=== PATIENT | male | born 1970 | race Caucasian/White ===

== ENCOUNTER 2021-08-11 07:00 | Emergency (ER) | payer BC ==
[~2021-08-11] VITALS: Ht 172.7 cm; Wt 74.8 kg
[~2021-08-11 07:00] MED LIST: CHLO25CA10 PO; GABA-532 PO; TRAM50TA2 PO
[2021-08-11 07:22] VITALS: BP 153/100
[2021-08-11 08:50] LABS: BASOPHILS % (AUTO) 0.2 % (0-1); EOSINOPHILS % (AUTO) 0.1 % (0-6); HEMATOCRIT 46.2 % (42.0-52.0); HEMOGLOBIN 15.5 g/dl (14.0-17.9); LYMPHOCYTES # (AUTO) 1.2 X10'3 (1.1-4.8); LYMPHOCYTES % (AUTO) 10.2 % (21-51); MEAN CORPUSCULAR HEMOGLOBIN 28.7 PG (27.0-31.0); MEAN CORPUSCULAR HGB CONC 33.6 g/dL (33.0-36.5); MEAN CORPUSCULAR VOLUME 85.5 FL (78-98); MEAN PLATELET VOLUME 6.5 FL (7.4-10.4); MONOCYTES # (AUTO) 0.8 X10'3 (0-0.9); MONOCYTES % (AUTO) 6.7 % (2-12); NEUTROPHILS # (AUTO) 9.9 X10'3 (1.8-7.7); NEUTROPHILS % (AUTO) 82.8 % (42-75); PLATELET COUNT 355 X10'3 (140-440); RED BLOOD COUNT 5.41 X10'6 (4.70-6.10); RED CELL DISTRIBUTION WIDTH 17.1 % (11.5-14.5)
[2021-08-11 09:03] LABS: ALANINE AMINOTRANSFERASE 15 U/L (12-78); ALBUMIN 4.2 G/DL (3.4-5.0); ALBUMIN/GLOBULIN RATIO 1.1 (1.1-1.5); ALKALINE PHOSPHATASE 85 IU/L (46-116); ANION GAP 15 (8-16); ASPARTATE AMINO TRANSFERASE 19 U/L (10-37); BILIRUBIN,TOTAL 1.1 MG/DL (0.1-1.0); BLOOD UREA NITROGEN 15 MG/DL (7-18); BUN/CREATININE RATIO 12.6 (5.4-32.0); CALCIUM 8.5 MG/DL (8.5-10.1); CHLORIDE 100 MMOL/L (99-107); CREATININE 1.19 MG/DL (0.60-1.10); GLUCOSE 112 MG/DL (70-104); LIPASE 66 U/L (73-393); POTASSIUM 3.9 MMOL/L (3.5-5.1); SODIUM 141 MMOL/L (135-145); TOTAL CARBON DIOXIDE 26.2 MMOL/L (24-32); TOTAL PROTEIN 8.1 G/DL (6.4-8.2); eGFR 64 ML/MIN
[2021-08-11] MEDS ORDERED: morphine 10mg/ml inj. IV ONE (09:05)
[2021-08-11] MEDS ORDERED: chlordiazePOXIDE 25mg capsule PO ONE (09:15)
[2021-08-11 09:22] LABS: ETHANOL 0.135 GM/DL (0.0-0.010)
[2021-08-11] MEDS ORDERED: CHLO25CA10 PO (10:03)
== END 2021-08-11 10:27 | disposition home or self-care (01) ==
LOC: ER 07:01
DX: F10.230 Alcohol dependence with withdrawal, uncomplicated (principal); I10 Essential (primary) hypertension; Z88.5 Allergy status to narcotic agent; Z88.8 Allergy status to other drugs, medicaments and biological substances; Z79.899 Other long term (current) drug therapy; Y90.9 Presence of alcohol in blood, level not specified
CPT/HCPCS: 36415; 80053; 80320; 83690; 85025; 99283

== ENCOUNTER 2023-04-12 13:03 | Emergency (ER) | payer BC ==
[~2023-04-12] VITALS: Ht 172.7 cm; Wt 68.2 kg
[2023-04-12 13:17] VITALS: BP 112/74; PULSE 106; RESP 18; TEMP 97.8; O2SAT 98
== END 2023-04-12 15:15 | disposition left against medical advice (07) ==
LOC: ER 13:03
DX: F10.129 Alcohol abuse with intoxication, unspecified (principal); Z53.21 Procedure and treatment not carried out due to patient leaving prior to being seen by health care provider; Y90.9 Presence of alcohol in blood, level not specified
CPT/HCPCS: 99281

== ENCOUNTER 2024-02-11 14:11 | Inpatient (IN) | payer BC ==
[~2024-02-11] VITALS: Ht 167.6 cm; Wt 72.7 kg
[2024-02-11] MEDS: ondansetron/PF 4mg/2ml inj IV ONE (15:33)
[2024-02-11] MEDS: thiamine 100mg/ml 2ml inj. IV ONE (15:36)
[2024-02-11 15:37] LABS: BASOPHILS % (AUTO) 0.4 % (0-1); EOSINOPHILS % (AUTO) 0.7 % (0-6); HEMATOCRIT 37.4 % (42.0-52.0); HEMOGLOBIN 12.2 g/dl (14.0-17.9); LYMPHOCYTES # (AUTO) 1.1 X10'3 (1.1-4.8); LYMPHOCYTES % (AUTO) 20.8 % (21-51); MEAN CORPUSCULAR HEMOGLOBIN 25.3 PG (27.0-31.0); MEAN CORPUSCULAR HGB CONC 32.7 g/dL (33.0-36.5); MEAN CORPUSCULAR VOLUME 77.5 FL (78-98); MEAN PLATELET VOLUME 5.7 FL (7.4-10.4); MONOCYTES # (AUTO) 0.5 X10'3 (0-0.9); MONOCYTES % (AUTO) 9.8 % (2-12); NEUTROPHILS # (AUTO) 3.8 X10'3 (1.8-7.7); NEUTROPHILS % (AUTO) 68.3 % (42-75); PLATELET COUNT 365 X10'3 (140-440); RED BLOOD COUNT 4.82 X10'6 (4.70-6.10); RED CELL DISTRIBUTION WIDTH 18.6 % (11.5-14.5); WHITE BLOOD COUNT 5.5 X10'3 (4.5-11.0)
[2024-02-11] MEDS: normal saline 1000ml 1,000 ML IV ONE (15:38)
[2024-02-11] MEDS: phenoBARBITAL sod 130mg/ml inj. IV ONE (15:38)
[2024-02-11 15:55] LABS: ALANINE AMINOTRANSFERASE 155 U/L (12-78); ALBUMIN 3.7 G/DL (3.4-5.0); ALBUMIN/GLOBULIN RATIO 0.8 (1.1-1.5); ALKALINE PHOSPHATASE 129 IU/L (46-116); ANION GAP 15 (8-16); ASPARTATE AMINO TRANSFERASE 317 U/L (10-37); BILIRUBIN,TOTAL 0.4 MG/DL (0.1-1.0); BLOOD UREA NITROGEN 10 MG/DL (7-18); BUN/CREATININE RATIO 8.1 (10.0-20.0); CALCIUM 8.2 MG/DL (8.5-10.1); CHLORIDE 98 MMOL/L (99-107); CREATININE 1.23 MG/DL (0.60-1.10); POTASSIUM 3.6 MMOL/L (3.5-5.1); SODIUM 138 MMOL/L (135-145); TOTAL CARBON DIOXIDE 24.9 MMOL/L (24-32); TOTAL PROTEIN 8.2 G/DL (6.4-8.2); eCRCL 62 ML/MIN; eGFR 61 ML/MIN
[2024-02-11 15:58] LABS: BILIRUBIN,URINE NEGATIVE (Neg); CLARITY,URINE CLEAR (Clear); COLOR,URINE YELLOW (Yellow); GLUCOSE, URINE NEGATIVE (Neg); KETONES,URINE NEGATIVE (Neg); LEUKOCYTE ESTERASE ,URINE NEGATIVE (Neg); NITRITES, URINE NEGATIVE (Neg); OCCULT BLOOD,URINE TRACE-INTACT (Neg); PROTEIN,URINE NEGATIVE (Neg); UROBILINOGEN,URINE 0.2 E.U/dL (0.2-1.0)
[2024-02-11 16:01] LABS: GLUCOSE 174 MG/DL (70-104)
[2024-02-11 16:07] LABS: UA COLLECTION TYPE URINAL
[2024-02-11 16:08] LABS: BACTERIA,URINE NONE SEEN /HPF (Neg); MUCUS STRANDS FEW /LPF (Neg); RBC,URINE NONE SEEN /HPF (0-2); SQUAMOUS EPITHELIAL CELL,UR NONE SEEN /LPF (FEW); WBC,URINE NONE SEEN /HPF (0-4)
[2024-02-11 16:17] LABS: URINE AMPHETAMINE SCREEN NEGATIVE (Neg); URINE BARBITUATE SCREEN POSITIVE (Neg); URINE BENZODIAZEPINES SCREEN NEGATIVE (Neg); URINE CANNABINOID SCREEN NEGATIVE (Neg); URINE COCAINE SCREEN NEGATIVE (Neg); URINE METHADONE SCREEN NEGATIVE (Neg); URINE OPIATE SCREEN NEGATIVE (Neg); URINE PHENCYCLIDINE SCREEN NEGATIVE (Neg)
[2024-02-11] MEDS ORDERED: potassium Cl 20 mEq SR tablet PO PRN ×2 (17:10)
[2024-02-11] MEDS ORDERED: HYDROcodone/acetaminophen 5mg/325mg tablet PO PRN (17:10)
[2024-02-11] MEDS ORDERED: potassium Cl 40MEQ/1/2NS 520ml 520 ML IV PRN (17:10)
[2024-02-11] MEDS ORDERED: mag hydrox/Alum hydrox/simeth 30ml oral suspension PO PRN ×2 (17:10→17:35)
[2024-02-11] MEDS ORDERED: magnesium hydroxide 30ml (MOM) UD suspension PO PRN (17:10)
[2024-02-11] MEDS ORDERED: magnesium Cl slow-release 64mg tablet PO PRN (17:10)
[2024-02-11] MEDS ORDERED: ondansetron/PF 4mg/2ml inj IV PRN (17:10)
[2024-02-11] MEDS ORDERED: acetaminophen 325mg tablet PO PRN (17:10)
[2024-02-11] MEDS ORDERED: morphine 2 MG/ML inj. syringe IV PRN (17:10)
[2024-02-11 17:25] LABS: ACETAMINOPHEN < 2.0 UG/ML (10-30)
[2024-02-11 17:27] LABS: ETHANOL 492 MG/DL (<10)
[2024-02-11] MEDS ORDERED: dicyclomine 10 MG capsule PO PRN (17:35)
[2024-02-11] MEDS ORDERED: cyclobenzaprine 10mg tablet PO PRN (17:35)
[2024-02-11] MEDS ORDERED: haloperidol lactate 5mg/ml inj IM PRN (17:35)
[2024-02-11 17:46] LABS: MAGNESIUM 2.1 MG/DL (1.5-2.4)
[2024-02-11] MEDS: LORazepam 2 mg/ml vial IV PRN ×2 (17:54→18:37)
[2024-02-11] MEDS: normal saline 1000ml 1,000 ML IV SCH (17:55)
[2024-02-11 18:42] LABS: APTT 25 SECONDS (22-32); INR 0.9 INR; PROTHROMBIN TIME 9.8 SECONDS (9.0-12.0)
[2024-02-11] MEDS: folic acid 1mg/0.2ml inj IV SCH (19:14)
[2024-02-11] MEDS: docusate sod 100mg capsule PO SCH (19:32)
[2024-02-11] MEDS: heparin, porcine 5000 units/ml vial SQ SCH (19:38)
[2024-02-11] MEDS: thiamine 100mg/ml 2ml inj. IV SCH (20:19)
[2024-02-12] VITALS (8 sets, daily range): BP systolic 131–156; BP diastolic 70–102; PULSE 63–114; RESP 12–20; TEMP 97.5–98.5; O2SAT 95–99
[2024-02-12 03:14] LABS: ALANINE AMINOTRANSFERASE 159 U/L (12-78); ALBUMIN 3.3 G/DL (3.4-5.0); ALBUMIN/GLOBULIN RATIO 0.8 (1.1-1.5); ALKALINE PHOSPHATASE 135 IU/L (46-116); ANION GAP 14 (8-16); ASPARTATE AMINO TRANSFERASE 308 U/L (10-37); BILIRUBIN,TOTAL 0.4 MG/DL (0.1-1.0); BLOOD UREA NITROGEN 9 MG/DL (7-18); CALCIUM 8.2 MG/DL (8.5-10.1); CHLORIDE 107 MMOL/L (99-107); GLUCOSE 85 MG/DL (70-104); PHOSPHORUS 3.5 MG/DL (2.3-4.5); SODIUM 146 MMOL/L (135-145); TOTAL CARBON DIOXIDE 25.2 MMOL/L (24-32); TOTAL PROTEIN 7.5 G/DL (6.4-8.2); eCRCL 85 ML/MIN; eGFR 88 ML/MIN
[2024-02-12] MEDS ORDERED: OMEP40CA21 PO (05:52)
[2024-02-12 07:52] LABS: BASOPHILS % (AUTO) 0.6 % (0-1); EOSINOPHILS # (AUTO) 0.1 X10'3 (0-0.9); EOSINOPHILS % (AUTO) 1.6 % (0-6); HEMATOCRIT 37.9 % (42.0-52.0); HEMOGLOBIN 12.1 g/dl (14.0-17.9); LYMPHOCYTES # (AUTO) 0.8 X10'3 (1.1-4.8); LYMPHOCYTES % (AUTO) 17.2 % (21-51); MEAN CORPUSCULAR HEMOGLOBIN 25.2 PG (27.0-31.0); MEAN CORPUSCULAR HGB CONC 31.9 g/dL (33.0-36.5); MEAN CORPUSCULAR VOLUME 79.1 FL (78-98); MEAN PLATELET VOLUME 6.2 FL (7.4-10.4); MONOCYTES # (AUTO) 0.4 X10'3 (0-0.9); MONOCYTES % (AUTO) 8.8 % (2-12); NEUTROPHILS # (AUTO) 3.5 X10'3 (1.8-7.7); NEUTROPHILS % (AUTO) 71.8 % (42-75); PLATELET COUNT 314 X10'3 (140-440); RED BLOOD COUNT 4.79 X10'6 (4.70-6.10); RED CELL DISTRIBUTION WIDTH 18.9 % (11.5-14.5); WHITE BLOOD COUNT 4.9 X10'3 (4.5-11.0)
[2024-02-12] MEDS: multivitamins, therapeutics tablet PO SCH (08:56)
[2024-02-12] MEDS: atenolol 50mg tablet PO SCH (08:57)
[2024-02-12] MEDS ORDERED: MIRT-87 PO (22:07)
[2024-02-12] MEDS ORDERED: QUET200T31 PO (22:07)
[2024-02-12] MEDS ORDERED: ROSU10TA72 PO (22:07)
[2024-02-13] VITALS (9 sets, daily range): BP systolic 107–138; BP diastolic 62–79; PULSE 78–86; RESP 13–21; TEMP 97.5–98.8; O2SAT 94–98
[2024-02-13 07:13] LABS: BASOPHILS % (AUTO) 0.5 % (0-1); EOSINOPHILS # (AUTO) 0.2 X10'3 (0-0.9); EOSINOPHILS % (AUTO) 2.3 % (0-6); HEMATOCRIT 33.7 % (42.0-52.0); HEMOGLOBIN 10.9 g/dl (14.0-17.9); LYMPHOCYTES # (AUTO) 1.1 X10'3 (1.1-4.8); MEAN CORPUSCULAR HEMOGLOBIN 25.4 PG (27.0-31.0); MEAN CORPUSCULAR HGB CONC 32.4 g/dL (33.0-36.5); MEAN CORPUSCULAR VOLUME 78.4 FL (78-98); MEAN PLATELET VOLUME 6.7 FL (7.4-10.4); MONOCYTES # (AUTO) 0.5 X10'3 (0-0.9); MONOCYTES % (AUTO) 7.1 % (2-12); NEUTROPHILS # (AUTO) 5.8 X10'3 (1.8-7.7); NEUTROPHILS % (AUTO) 76.1 % (42-75); PLATELET COUNT 303 X10'3 (140-440); RED CELL DISTRIBUTION WIDTH 19.3 % (11.5-14.5); WHITE BLOOD COUNT 7.6 X10'3 (4.5-11.0)
[2024-02-13 07:20] LABS: ALANINE AMINOTRANSFERASE 95 U/L (12-78); ALBUMIN 2.9 G/DL (3.4-5.0); ALBUMIN/GLOBULIN RATIO 0.7 (1.1-1.5); ALKALINE PHOSPHATASE 125 IU/L (46-116); ANION GAP 12 (8-16); ASPARTATE AMINO TRANSFERASE 112 U/L (10-37); BILIRUBIN,TOTAL 0.7 MG/DL (0.1-1.0); BLOOD UREA NITROGEN 9 MG/DL (7-18); BUN/CREATININE RATIO 11.4 (10.0-20.0); CHLORIDE 99 MMOL/L (99-107); CREATININE 0.79 MG/DL (0.60-1.10); GLUCOSE 101 MG/DL (70-104); MAGNESIUM 1.3 MG/DL (1.5-2.4); PHOSPHORUS 2.3 MG/DL (2.3-4.5); POTASSIUM 3.6 MMOL/L (3.5-5.1); SODIUM 135 MMOL/L (135-145); TOTAL CARBON DIOXIDE 23.6 MMOL/L (24-32); TOTAL PROTEIN 6.8 G/DL (6.4-8.2); eCRCL 96 ML/MIN; eGFR > 90 ML/MIN
[2024-02-13] MEDS: pantoprazole 40 MG vial IV SCH (07:33)
[2024-02-13] MEDS: magnesium sulf-water 2g/50mL 50 ML IV PRN (07:55)
[2024-02-13] MEDS: magnesium sulf-water 4G/100mL 100 ML IV ONE (11:42)
[2024-02-13 14:16] LABS: OCCULT BLOOD STOOL POSITIVE (Neg)
[2024-02-13] MEDS: mirtazapine 15mg tablet PO SCH (20:01)
[2024-02-13] MEDS: LORazepam 2 mg/ml vial IV PRN (20:04)
[2024-02-13] MEDS ORDERED: quetiapine 100mg tablet PO SCH (21:00)
[2024-02-14] MEDS: acetaminophen 325mg tablet PO PRN (00:59)
[2024-02-14 06:00] VITALS: BP 108/64; PULSE 78; RESP 18; TEMP 97.6; O2SAT 99
[2024-02-14 06:53] LABS: BASOPHILS # (AUTO) 0.1 X10'3 (0-0.2); BASOPHILS % (AUTO) 0.8 % (0-1); EOSINOPHILS # (AUTO) 0.2 X10'3 (0-0.9); EOSINOPHILS % (AUTO) 2.4 % (0-6); HEMATOCRIT 31.6 % (42.0-52.0); HEMOGLOBIN 10.2 g/dl (14.0-17.9); LYMPHOCYTES # (AUTO) 1.1 X10'3 (1.1-4.8); LYMPHOCYTES % (AUTO) 16.3 % (21-51); MEAN CORPUSCULAR HEMOGLOBIN 25.7 PG (27.0-31.0); MEAN CORPUSCULAR HGB CONC 32.3 g/dL (33.0-36.5); MEAN CORPUSCULAR VOLUME 79.4 FL (78-98); MEAN PLATELET VOLUME 6.6 FL (7.4-10.4); MONOCYTES # (AUTO) 0.4 X10'3 (0-0.9); MONOCYTES % (AUTO) 5.8 % (2-12); NEUTROPHILS # (AUTO) 5.3 X10'3 (1.8-7.7); NEUTROPHILS % (AUTO) 74.7 % (42-75); PLATELET COUNT 221 X10'3 (140-440); RED BLOOD COUNT 3.98 X10'6 (4.70-6.10); RED CELL DISTRIBUTION WIDTH 19.3 % (11.5-14.5)
[2024-02-14 07:31] LABS: ALANINE AMINOTRANSFERASE 63 U/L (12-78); ALBUMIN 2.7 G/DL (3.4-5.0); ALBUMIN/GLOBULIN RATIO 0.7 (1.1-1.5); ALKALINE PHOSPHATASE 109 IU/L (46-116); ANION GAP 11 (8-16); ASPARTATE AMINO TRANSFERASE 52 U/L (10-37); BILIRUBIN,TOTAL 0.5 MG/DL (0.1-1.0); BLOOD UREA NITROGEN 12 MG/DL (7-18); BUN/CREATININE RATIO 14.6 (10.0-20.0); CALCIUM 8.1 MG/DL (8.5-10.1); CHLORIDE 103 MMOL/L (99-107); CREATININE 0.82 MG/DL (0.60-1.10); GLUCOSE 93 MG/DL (70-104); POTASSIUM 3.5 MMOL/L (3.5-5.1); SODIUM 136 MMOL/L (135-145); TOTAL CARBON DIOXIDE 21.9 MMOL/L (24-32); TOTAL PROTEIN 6.5 G/DL (6.4-8.2); eCRCL 93 ML/MIN; eGFR > 90 ML/MIN
[2024-02-14 07:36] LABS: PHOSPHORUS 2.2 MG/DL (2.3-4.5)
[2024-02-14 08:00] VITALS: RESP 18; O2SAT 99
[2024-02-14] MEDS ORDERED: THIA100T70 PO (08:44)
[2024-02-14] MEDS ORDERED: FOLI0.4T6 PO (08:44)
[2024-02-14 11:00] VITALS: BP 111/43; PULSE 64; RESP 17; TEMP 97.8; O2SAT 97
[2024-02-14] MEDS ORDERED: PANT-47 PO (11:15)
[2024-02-14] MEDS ORDERED: LORA-269 PO (12:15)
== END 2024-02-14 14:20 | disposition home or self-care (01) | DRG 100 ==
LOC: ER 14:12 → ED HOLD 17:15 → PCU 3S 02-12 06:35
PROVIDERS: ADMIT Internal Medicine; ATTEND Internal Medicine
PROC: 05HA33Z Insertion of Infusion Device into Left Brachial Vein, Percutaneous Approach (ICD-10-PCS; principal; 2024-02-12)
PROC: B54NZZA Ultrasonography of Left Upper Extremity Veins, Guidance (ICD-10-PCS; 2024-02-12)
DX: R56.9 Unspecified convulsions (principal); N17.0 Acute kidney failure with tubular necrosis; F10.139 Alcohol abuse with withdrawal, unspecified; R74.01 Elevation of levels of liver transaminase levels; D50.9 Iron deficiency anemia, unspecified; I10 Essential (primary) hypertension; Y90.8 Blood alcohol level of 240 mg/100 ml or more; Z88.8 Allergy status to other drugs, medicaments and biological substances
CPT/HCPCS: 36410; 36415; 71045; 76937; 80053; 80305; 80320; 80329; 81001; 82272; 83735; 84100; 84484; 85025; 85610; 85730; 87081; 93005; 96374; 96375; 97161; 97530; 99285; A4615; A6213; C1751; G0378; J1644; J2060; J2405; J2470; J2560; J3411; J3475; J3490; J7030

== ENCOUNTER 2024-02-23 12:26 | Emergency (ER) | payer BC ==
[~2024-02-23] VITALS: Ht 167.6 cm; Wt 68.9 kg
[~2024-02-23 12:26] MED LIST changes: -CHLO25CA10 PO; +FOLI0.4T6 PO; +LORA-269 PO; +MIRT-87 PO; +PANT-47 PO; +QUET200T31 PO; +ROSU10TA72 PO; +THIA100T70 PO; -TRAM50TA2 PO
[2024-02-23] MEDS: magnesium sulf-water 2g/50mL 50 ML IV ONE (13:43)
[2024-02-23] MEDS: haloperidol lactate 5mg/ml inj IM ONE (13:43)
[2024-02-23] MEDS: LORazepam 2 mg/ml vial IV ONE ×2 (13:43→22:22)
[2024-02-23] MEDS: normal saline 1000ml 1,000 ML IV ONE (13:44)
[2024-02-23] MEDS: normal saline 1000ML IV soln IVB ONE (13:44)
[2024-02-23 14:21] LABS: BASOPHILS # (AUTO) 0.1 X10'3 (0-0.2); HEMOGLOBIN 11.5 g/dl (14.0-17.9); LYMPHOCYTES # (AUTO) 0.9 X10'3 (1.1-4.8); MEAN CORPUSCULAR HGB CONC 32.7 g/dL (33.0-36.5); MEAN CORPUSCULAR VOLUME 78.5 FL (78-98); MEAN PLATELET VOLUME 5.4 FL (7.4-10.4); MONOCYTES # (AUTO) 0.4 X10'3 (0-0.9); WHITE BLOOD COUNT 4.2 X10'3 (4.5-11.0)
[2024-02-23 14:25] LABS: EOSINOPHILS % (AUTO) 0.2 % (0-6); HEMATOCRIT 35.1 % (42.0-52.0); LYMPHOCYTES % (AUTO) 20.8 % (21-51); MEAN CORPUSCULAR HEMOGLOBIN 25.6 PG (27.0-31.0); MONOCYTES % (AUTO) 9.8 % (2-12); NEUTROPHILS # (AUTO) 2.8 X10'3 (1.8-7.7); NEUTROPHILS % (AUTO) 67.2 % (42-75); PLATELET COUNT 634 X10'3 (140-440); RED BLOOD COUNT 4.47 X10'6 (4.70-6.10); RED CELL DISTRIBUTION WIDTH 20.8 % (11.5-14.5)
[2024-02-23 14:28] LABS: APTT 25 SECONDS (22-32)
[2024-02-23 14:32] LABS: ALBUMIN 3.6 G/DL (3.4-5.0); ANION GAP 15 (8-16); BLOOD UREA NITROGEN 9 MG/DL (7-18); BUN/CREATININE RATIO 9.4 (10.0-20.0); CALCIUM 8.4 MG/DL (8.5-10.1); CHLORIDE 103 MMOL/L (99-107); CREATININE 0.96 MG/DL (0.60-1.10); GLUCOSE 86 MG/DL (70-104); LIPASE 28 U/L (16-77); POTASSIUM 4.2 MMOL/L (3.5-5.1); SODIUM 143 MMOL/L (135-145); TOTAL CARBON DIOXIDE 25.4 MMOL/L (24-32); eCRCL 79 ML/MIN; eGFR 82 ML/MIN
[2024-02-23 14:34] LABS: ETHANOL 356 MG/DL (<10)
[2024-02-23] MEDS ORDERED: CHLO25CA10 PO (15:33)
[2024-02-23 16:02] LABS: PLATELET ESTIMATE INCREASED
[2024-02-23 16:03] LABS: ANISOCYTOSIS 3+; HYPOCHROMASIA 1+; MICROCYTOSIS 1+; POLYCHROMASIA FEW
[2024-02-23] MEDS: chlordiazePOXIDE 25mg capsule PO ONE (17:32)
[2024-02-23] MEDS: LORazepam 1 MG tablet PO ONE (20:51)
[2024-02-24] MEDS: hyoscyamine 0.125mg TAB.SUBL SL ONE (01:10)
[2024-02-24] MEDS: mag hydrox/Alum hydrox/simeth 30ml oral suspension PO ONE (01:11)
[2024-02-24] MEDS: LIDOcaine 2% Viscous 15ml cup MM ONE (01:11)
[2024-02-24 02:57] VITALS: BP 165/81; PULSE 110; RESP 25; O2SAT 99
== END 2024-02-24 03:33 | disposition home or self-care (01) ==
LOC: ER 12:27
DX: F10.129 Alcohol abuse with intoxication, unspecified (principal); I10 Essential (primary) hypertension; R79.1 Abnormal coagulation profile; Z88.8 Allergy status to other drugs, medicaments and biological substances; Z79.899 Other long term (current) drug therapy; Z86.73 Personal history of transient ischemic attack (TIA), and cerebral infarction without residual deficits; Y90.9 Presence of alcohol in blood, level not specified
CPT/HCPCS: 36415; 71045; 80048; 80320; 83690; 83735; 84484; 85008; 85025; 85610; 85730; 96365; 96366; 96372; 96375; 96376; 99285; J1630; J2060; J7030; A6449

== ENCOUNTER 2024-02-24 15:45 | Emergency (ER) | payer BC ==
[~2024-02-24] VITALS: Ht 167.6 cm; Wt 69.6 kg
[~2024-02-24 15:45] MED LIST changes: +CHLO25CA10 PO
[2024-02-24 15:52] VITALS: TEMP 98.9
[2024-02-24] MEDS: normal saline 1000ML IV soln IVB ONE (17:08)
[2024-02-24 17:11] VITALS: BP 158/98; PULSE 117; RESP 14; O2SAT 98
[2024-02-24] MEDS: gabapentin 400mg capsule PO STA (17:26)
== END 2024-02-24 17:35 | disposition home or self-care (01) ==
LOC: ER 15:45
DX: F10.129 Alcohol abuse with intoxication, unspecified (principal); I10 Essential (primary) hypertension; Z86.73 Personal history of transient ischemic attack (TIA), and cerebral infarction without residual deficits; Z88.8 Allergy status to other drugs, medicaments and biological substances; Z79.899 Other long term (current) drug therapy
CPT/HCPCS: 99283

== ENCOUNTER 2024-02-25 11:28 | Emergency (ER) | payer BC ==
[~2024-02-25] VITALS: Ht 167.6 cm; Wt 72.7 kg
[2024-02-25 11:33] VITALS: BP 140/90; PULSE 121; RESP 18; TEMP 98.6; O2SAT 98
[2024-02-25 12:33] LABS: BASOPHILS % (AUTO) 0.3 % (0-1); EOSINOPHILS % (AUTO) 0 % (0-6); HEMOGLOBIN 11.7 g/dl (14.0-17.9); LYMPHOCYTES # (AUTO) 1.2 X10'3 (1.1-4.8); MEAN PLATELET VOLUME 5.7 FL (7.4-10.4)
[2024-02-25 12:35] LABS: BASOPHILS # (AUTO) 0.1 X10'3 (0-0.2); HEMATOCRIT 36.3 % (42.0-52.0); LYMPHOCYTES % (AUTO) 7.7 % (21-51); MEAN CORPUSCULAR HEMOGLOBIN 24.9 PG (27.0-31.0); MEAN CORPUSCULAR HGB CONC 32.2 g/dL (33.0-36.5); MEAN CORPUSCULAR VOLUME 77.2 FL (78-98); MONOCYTES % (AUTO) 6.3 % (2-12); NEUTROPHILS # (AUTO) 13.2 X10'3 (1.8-7.7); NEUTROPHILS % (AUTO) 85.7 % (42-75); PLATELET COUNT 759 X10'3 (140-440); RED CELL DISTRIBUTION WIDTH 20.3 % (11.5-14.5); WHITE BLOOD COUNT 15.4 X10'3 (4.5-11.0)
[2024-02-25 12:46] LABS: ALANINE AMINOTRANSFERASE 52 U/L (12-78); ALBUMIN 4.1 G/DL (3.4-5.0); ALBUMIN/GLOBULIN RATIO 0.9 (1.1-1.5); ALKALINE PHOSPHATASE 110 IU/L (46-116); ANION GAP 11 (8-16); ASPARTATE AMINO TRANSFERASE 39 U/L (10-37); BILIRUBIN,TOTAL 0.5 MG/DL (0.1-1.0); BLOOD UREA NITROGEN 7 MG/DL (7-18); BUN/CREATININE RATIO 5.9 (10.0-20.0); CALCIUM 8.9 MG/DL (8.5-10.1); CHLORIDE 94 MMOL/L (99-107); CREATININE 1.18 MG/DL (0.60-1.10); GLUCOSE 124 MG/DL (70-104); LIPASE 29 U/L (16-77); POTASSIUM 3.1 MMOL/L (3.5-5.1); SODIUM 138 MMOL/L (135-145); TOTAL CARBON DIOXIDE 33.3 MMOL/L (24-32); TOTAL PROTEIN 8.8 G/DL (6.4-8.2); eCRCL 65 ML/MIN; eGFR 64 ML/MIN
[2024-02-25 13:39] LABS: ETHANOL 280 MG/DL (<10)
[2024-02-25 14:11] LABS: ANISOCYTOSIS 3+; MICROCYTOSIS 1+; PLATELET ESTIMATE INCREASED
[2024-02-25 14:12] LABS: ELLIPTOCYTES 1+
== END 2024-02-25 16:29 | disposition left against medical advice (07) ==
LOC: ER 11:28
DX: F10.239 Alcohol dependence with withdrawal, unspecified (principal); Z53.21 Procedure and treatment not carried out due to patient leaving prior to being seen by health care provider; R41.0 Disorientation, unspecified
CPT/HCPCS: 36415; 70450; 80053; 80320; 83690; 85008; 85025

== ENCOUNTER 2024-02-26 07:38 | Emergency (ER) | payer BC ==
[~2024-02-26] VITALS: Ht 170.2 cm; Wt 68.2 kg
[2024-02-26 08:03] LABS: EOSINOPHILS % (AUTO) 0 % (0-6); HEMOGLOBIN 11.8 g/dl (14.0-17.9); MONOCYTES # (AUTO) 0.7 X10'3 (0-0.9)
[2024-02-26 08:05] LABS: BASOPHILS # (AUTO) 0.1 X10'3 (0-0.2); BASOPHILS % (AUTO) 0.5 % (0-1); HEMATOCRIT 36.8 % (42.0-52.0); LYMPHOCYTES # (AUTO) 1.5 X10'3 (1.1-4.8); MEAN CORPUSCULAR VOLUME 78.2 FL (78-98); MEAN PLATELET VOLUME 5.9 FL (7.4-10.4); MONOCYTES % (AUTO) 5.5 % (2-12); PLATELET COUNT 769 X10'3 (140-440); RED CELL DISTRIBUTION WIDTH 21.2 % (11.5-14.5); WHITE BLOOD COUNT 13.3 X10'3 (4.5-11.0)
[2024-02-26 08:20] LABS: ALANINE AMINOTRANSFERASE 45 U/L (12-78); ALBUMIN 3.9 G/DL (3.4-5.0); ALBUMIN/GLOBULIN RATIO 0.8 (1.1-1.5); ALKALINE PHOSPHATASE 107 IU/L (46-116); ANION GAP 11 (8-16); ASPARTATE AMINO TRANSFERASE 37 U/L (10-37); BILIRUBIN,TOTAL 0.5 MG/DL (0.1-1.0); BLOOD UREA NITROGEN 19 MG/DL (7-18); BUN/CREATININE RATIO 11.9 (10.0-20.0); CALCIUM 8.5 MG/DL (8.5-10.1); CHLORIDE 90 MMOL/L (99-107); ETHANOL 266 MG/DL (<10); GLUCOSE 132 MG/DL (70-104); SODIUM 134 MMOL/L (135-145); TOTAL CARBON DIOXIDE 32.8 MMOL/L (24-32); TOTAL PROTEIN 8.6 G/DL (6.4-8.2); eCRCL 49 ML/MIN; eGFR 45 ML/MIN
[2024-02-26 08:25] LABS: POTASSIUM 2.9 MMOL/L (3.5-5.1)
[2024-02-26] MEDS: diazepam inj 5 MG/ML inj. IV ONE (08:25)
[2024-02-26] MEDS: normal saline 1000ML IV soln IVB ONE (08:25)
[2024-02-26] MEDS: magnesium sulf-water 4G/100mL 100 ML IV ONE (12:16)
[2024-02-26] MEDS: potassium bicarbonate/cit acid 25mEq tablet.effervescent PO ONE (12:17)
[2024-02-26] MEDS: chlordiazePOXIDE 25mg capsule PO ONE (13:17)
[2024-02-26 13:43] VITALS: BP 130/74; PULSE 74; RESP 18; O2SAT 97
[2024-02-26 13:57] VITALS: TEMP 97.3
== END 2024-02-26 14:19 | disposition home or self-care (01) ==
LOC: ER 07:39
DX: F10.129 Alcohol abuse with intoxication, unspecified (principal); I10 Essential (primary) hypertension; Z88.8 Allergy status to other drugs, medicaments and biological substances; Z79.899 Other long term (current) drug therapy; Z86.73 Personal history of transient ischemic attack (TIA), and cerebral infarction without residual deficits
CPT/HCPCS: 80053; 80320; 85025; 96361; 96365; 96375; 99284; J3360; J3475; J7030; A4615

== ENCOUNTER 2024-05-08 06:24 | Emergency (ER) | payer BC ==
[~2024-05-08] VITALS: Ht 172.7 cm; Wt 75.0 kg
[~2024-05-08 06:24] MED LIST changes: -FOLI0.4T6 PO
[2024-05-08] MEDS ORDERED: folic acid/vitamin B complex w/vitamin C 0.8mg tablet PO SCH (06:35)
[2024-05-08] MEDS: chlordiazePOXIDE 25mg capsule PO ONE (06:47)
[2024-05-08] MEDS: folic acid/vitamin B complex w/vitamin C 0.8mg tablet PO ONE (06:47)
[2024-05-08] MEDS: ondansetron 4mg rapidly disintigrating tab PO ONE (06:47)
[2024-05-08 06:50] VITALS: BP 123/65; PULSE 96; RESP 18; TEMP 98.2; O2SAT 97
[2024-05-08 07:14] LABS: BASOPHILS # (AUTO) 0.1 X10'3 (0-0.2); BASOPHILS % (AUTO) 1.3 % (0-1); EOSINOPHILS % (AUTO) 0.7 % (0-6); HEMATOCRIT 32.3 % (42.0-52.0); HEMOGLOBIN 10.4 g/dl (14.0-17.9); LYMPHOCYTES # (AUTO) 1.5 X10'3 (1.1-4.8); LYMPHOCYTES % (AUTO) 28.6 % (21-51); MEAN CORPUSCULAR HEMOGLOBIN 24.2 PG (27.0-31.0); MEAN CORPUSCULAR HGB CONC 32.3 g/dL (33.0-36.5); MEAN CORPUSCULAR VOLUME 74.9 FL (78-98); MEAN PLATELET VOLUME 5.9 FL (7.4-10.4); MONOCYTES # (AUTO) 0.5 X10'3 (0-0.9); MONOCYTES % (AUTO) 9.1 % (2-12); NEUTROPHILS # (AUTO) 3.1 X10'3 (1.8-7.7); NEUTROPHILS % (AUTO) 60.3 % (42-75); PLATELET COUNT 461 X10'3 (140-440); RED BLOOD COUNT 4.32 X10'6 (4.70-6.10); RED CELL DISTRIBUTION WIDTH 26.8 % (11.5-14.5); WHITE BLOOD COUNT 5.1 X10'3 (4.5-11.0)
[2024-05-08 07:19] LABS: ETHANOL 233 MG/DL (<10); LIPASE 32 U/L (16-77); MAGNESIUM 1.8 MG/DL (1.5-2.4)
[2024-05-08 07:33] LABS: BILIRUBIN,URINE NEGATIVE (Neg); CLARITY,URINE CLEAR (Clear); COLOR,URINE YELLOW (Yellow); GLUCOSE, URINE NEGATIVE (Neg); KETONES,URINE TRACE mg/dl (Neg); LEUKOCYTE ESTERASE ,URINE NEGATIVE (Neg); NITRITES, URINE NEGATIVE (Neg); OCCULT BLOOD,URINE NEGATIVE (Neg); PROTEIN,URINE 30 mg/dl (Neg); UROBILINOGEN,URINE 0.2 E.U/dL (0.2-1.0)
[2024-05-08 07:38] LABS: UA COLLECTION TYPE VOIDED; URINE AMPHETAMINE SCREEN NEGATIVE (Neg); URINE BARBITUATE SCREEN POSITIVE (Neg); URINE BENZODIAZEPINES SCREEN NEGATIVE (Neg); URINE CANNABINOID SCREEN NEGATIVE (Neg); URINE COCAINE SCREEN NEGATIVE (Neg); URINE METHADONE SCREEN NEGATIVE (Neg); URINE OPIATE SCREEN NEGATIVE (Neg); URINE PHENCYCLIDINE SCREEN NEGATIVE (Neg)
[2024-05-08 07:47] LABS: BACTERIA,URINE FEW /HPF (Neg); MUCUS STRANDS MODERATE /LPF (Neg); RBC,URINE NONE SEEN /HPF (0-2); SQUAMOUS EPITHELIAL CELL,UR FEW /LPF (FEW); WBC CASTS 0-3 /LPF (NEGATIVE); WBC,URINE 0-4 /HPF (0-4)
[2024-05-08 07:48] LABS: FINE GRANULAR CAST 0-3 /LPF (NEGATIVE)
[2024-05-08 08:04] LABS: ALANINE AMINOTRANSFERASE 19 U/L (12-78); ALBUMIN 3.6 G/DL (3.4-5.0); ALBUMIN/GLOBULIN RATIO 0.9 (1.1-1.5); ALKALINE PHOSPHATASE 71 IU/L (46-116); ANION GAP 14 (8-16); ASPARTATE AMINO TRANSFERASE 27 U/L (10-37); BILIRUBIN,TOTAL 0.3 MG/DL (0.1-1.0); BLOOD UREA NITROGEN 11 MG/DL (7-18); BUN/CREATININE RATIO 12.1 (10.0-20.0); CALCIUM 8.7 MG/DL (8.5-10.1); CHLORIDE 102 MMOL/L (99-107); CREATININE 0.91 MG/DL (0.60-1.10); GLUCOSE 97 MG/DL (70-104); POTASSIUM 3.5 MMOL/L (3.5-5.1); SODIUM 140 MMOL/L (135-145); TOTAL CARBON DIOXIDE 23.9 MMOL/L (24-32); TOTAL PROTEIN 7.4 G/DL (6.4-8.2); eCRCL 90 ML/MIN; eGFR 87 ML/MIN
[2024-05-08 09:04] LABS: ANISOCYTOSIS 3+; ELLIPTOCYTES FEW; HYPOCHROMASIA 1+; MICROCYTOSIS 1+; PLATELET ESTIMATE INCREASED; TEAR DROP CELLS FEW
== END 2024-05-08 08:38 | disposition home or self-care (01) ==
LOC: ER 06:25
DX: F10.120 Alcohol abuse with intoxication, uncomplicated (principal); I10 Essential (primary) hypertension; Z86.73 Personal history of transient ischemic attack (TIA), and cerebral infarction without residual deficits; Z88.8 Allergy status to other drugs, medicaments and biological substances; Z79.899 Other long term (current) drug therapy
CPT/HCPCS: 36415; 80053; 80305; 80320; 81001; 83690; 83735; 85008; 85025; 93005; 99284

== ENCOUNTER 2024-05-21 20:32 | Inpatient (IN) | payer BC ==
[~2024-05-21] VITALS: Ht 167.6 cm; Wt 55.0 kg
[2024-05-21 21:01] LABS: BASOPHILS # (AUTO) 0.1 X10'3 (0-0.2); BASOPHILS % (AUTO) 1.7 % (0-1); EOSINOPHILS % (AUTO) 0 % (0-6); HEMATOCRIT 34.2 % (42.0-52.0); HEMOGLOBIN 10.9 g/dl (14.0-17.9); LYMPHOCYTES # (AUTO) 1.1 X10'3 (1.1-4.8); LYMPHOCYTES % (AUTO) 31.3 % (21-51); MEAN CORPUSCULAR HGB CONC 31.9 g/dL (33.0-36.5); MEAN CORPUSCULAR VOLUME 72.1 FL (78-98); MEAN PLATELET VOLUME 5.4 FL (7.4-10.4); MONOCYTES # (AUTO) 0.3 X10'3 (0-0.9); MONOCYTES % (AUTO) 8.4 % (2-12); NEUTROPHILS # (AUTO) 2.1 X10'3 (1.8-7.7); NEUTROPHILS % (AUTO) 58.6 % (42-75); PLATELET COUNT 375 X10'3 (140-440); RED BLOOD COUNT 4.75 X10'6 (4.70-6.10); RED CELL DISTRIBUTION WIDTH 26.3 % (11.5-14.5); WHITE BLOOD COUNT 3.5 X10'3 (4.5-11.0)
[2024-05-21 21:14] LABS: ALANINE AMINOTRANSFERASE 38 U/L (12-78); ALBUMIN 4.4 G/DL (3.4-5.0); ALKALINE PHOSPHATASE 113 IU/L (46-116); ANION GAP 17 (8-16); ASPARTATE AMINO TRANSFERASE 54 U/L (10-37); BILIRUBIN,TOTAL 0.6 MG/DL (0.1-1.0); BLOOD UREA NITROGEN 16 MG/DL (7-18); BUN/CREATININE RATIO 14.7 (10.0-20.0); CALCIUM 8.7 MG/DL (8.5-10.1); CHLORIDE 98 MMOL/L (99-107); CREATININE 1.09 MG/DL (0.60-1.10); GLUCOSE 92 MG/DL (70-104); LIPASE 34 U/L (16-77); POTASSIUM 3.9 MMOL/L (3.5-5.1); SODIUM 140 MMOL/L (135-145); TOTAL CARBON DIOXIDE 25.2 MMOL/L (24-32); TOTAL PROTEIN 8.7 G/DL (6.4-8.2); eCRCL 60 ML/MIN; eGFR 70 ML/MIN
[2024-05-21 21:30] LABS: ANISOCYTOSIS 2+; MICROCYTOSIS 1+; POIKILOCYTOSIS FEW
[2024-05-22] VITALS (20 sets, daily range): BP systolic 128–169; BP diastolic 60–95; PULSE 67–96; RESP 14–18; TEMP 97.6–98.2; O2SAT 95–99
[2024-05-22] MEDS ORDERED: acetaminophen 325mg tablet PO PRN (00:35)
[2024-05-22] MEDS ORDERED: magnesium Cl slow-release 64mg tablet PO PRN (00:35)
[2024-05-22] MEDS ORDERED: magnesium sulf-water 4G/100mL 100 ML IV PRN (00:35)
[2024-05-22] MEDS ORDERED: bisacodyl 10mg suppository rectal RC PRN (00:35)
[2024-05-22] MEDS ORDERED: potassium Cl 20 mEq SR tablet PO PRN ×2 (00:35)
[2024-05-22] MEDS ORDERED: HYDROmorphone/PF 0.2 MG/ML SYRINGE IV PRN (00:35)
[2024-05-22] MEDS ORDERED: mag hydrox/Alum hydrox/simeth 30ml oral suspension PO PRN ×2 (00:35→04:05)
[2024-05-22] MEDS ORDERED: magnesium sulf-water 2g/50mL 50 ML IV PRN (00:35)
[2024-05-22] MEDS ORDERED: HYDROcodone/acetaminophen 5mg/325mg tablet PO PRN (00:35)
[2024-05-22] MEDS ORDERED: magnesium hydroxide 30ml (MOM) UD suspension PO PRN (00:35)
[2024-05-22] MEDS ORDERED: potassium Cl 40MEQ/1/2NS 520ml 520 ML IV PRN (00:35)
[2024-05-22 00:57] LABS: HEMOGLOBIN 9.8 g/dl (14.0-17.9); MEAN CORPUSCULAR HEMOGLOBIN 22.8 PG (27.0-31.0); MEAN CORPUSCULAR HGB CONC 31.6 g/dL (33.0-36.5); MEAN CORPUSCULAR VOLUME 72.1 FL (78-98); MEAN PLATELET VOLUME 5.5 FL (7.4-10.4); PLATELET COUNT 301 X10'3 (140-440); RED CELL DISTRIBUTION WIDTH 25.6 % (11.5-14.5); WHITE BLOOD COUNT 5.2 X10'3 (4.5-11.0)
[2024-05-22] MEDS: pantoprazole 40 MG vial IV ONE (01:03)
[2024-05-22 01:04] LABS: APTT 25 SECONDS (22-32); PROTHROMBIN TIME 10.5 SECONDS (9.0-12.0)
[2024-05-22] MEDS: normal saline 1000ml 1,000 ML IV ONE (01:04)
[2024-05-22] MEDS: LORazepam 2 mg/ml vial IV ONE ×2 (01:04→04:00)
[2024-05-22] MEDS: pantoprazole 40MG/NS 100ML BAG 100 ML IV SCH (01:41)
[2024-05-22] MEDS: octreotide inj. 500 MCG in normal saline 100ml IV soln 97.5 ML IV SCH (01:48)
[2024-05-22] MEDS: normal saline 1000ml 1,000 ML IV SCH (01:49)
[2024-05-22 03:37] LABS: BILIRUBIN,URINE NEGATIVE (Neg); CLARITY,URINE CLEAR (Clear); COLOR,URINE YELLOW (Yellow); GLUCOSE, URINE NEGATIVE (Neg); KETONES,URINE >=80 mg/dl (Neg); LEUKOCYTE ESTERASE ,URINE NEGATIVE (Neg); NITRITES, URINE NEGATIVE (Neg); OCCULT BLOOD,URINE SMALL (Neg); PROTEIN,URINE >=300 mg/dl (Neg); UROBILINOGEN,URINE 0.2 E.U/dL (0.2-1.0)
[2024-05-22 03:44] LABS: BACTERIA,URINE FEW /HPF (Neg); MUCUS STRANDS FEW /LPF (Neg); RBC,URINE 0-2 /HPF (0-2); SQUAMOUS EPITHELIAL CELL,UR FEW /LPF (FEW); UA COLLECTION TYPE CLN CATCH MIDSTREAM
[2024-05-22 03:45] LABS: HYALINE CASTS 0-3 /LPF (NEGATIVE); WBC,URINE 0-4 /HPF (0-4)
[2024-05-22] MEDS ORDERED: dicyclomine 10 MG capsule PO PRN (04:05)
[2024-05-22] MEDS ORDERED: cyclobenzaprine 10mg tablet PO PRN (04:05)
[2024-05-22 04:16] LABS: MAGNESIUM 3.4 MG/DL (1.5-2.4); POTASSIUM 4.4 MMOL/L (3.5-5.1)
[2024-05-22] MEDS: K and/or MAG REPLACEMENT MC SCH (08:00)
[2024-05-22] MEDS: folic acid 1mg/0.2ml inj IV SCH (08:36)
[2024-05-22] MEDS: docusate sod 100mg capsule PO SCH (08:37)
[2024-05-22] MEDS: atenolol 50mg tablet PO SCH (08:38)
[2024-05-22] MEDS: thiamine 100mg/ml 2ml inj. IV SCH (08:38)
[2024-05-22 09:00] LABS: HEMATOCRIT 29.4 % (42.0-52.0); HEMOGLOBIN 9.3 g/dl (14.0-17.9); MEAN CORPUSCULAR HGB CONC 31.6 g/dL (33.0-36.5); MEAN CORPUSCULAR VOLUME 72.9 FL (78-98); MEAN PLATELET VOLUME 5.5 FL (7.4-10.4); PLATELET COUNT 264 X10'3 (140-440); RED BLOOD COUNT 4.04 X10'6 (4.70-6.10); RED CELL DISTRIBUTION WIDTH 25.4 % (11.5-14.5); WHITE BLOOD COUNT 9.4 X10'3 (4.5-11.0)
[2024-05-22] MEDS: LORazepam 2 mg/ml vial IV PRN (10:15)
[2024-05-22] MEDS ORDERED: LIDOcaine 2% Viscous 15ml cup ONE (13:05)
[2024-05-22] MEDS ORDERED: fentaNYL/PF 50MCG/1 ML 2ML syringe ONE ×2 (13:28→13:45)
[2024-05-22] MEDS ORDERED: MIDAZolam 1 MG/ML 5ML VIAL ONE (13:28)
[2024-05-22] MEDS ORDERED: simethicone 40mg/0.6ml oral drops 30ml ONE (13:35)
[2024-05-22] MEDS: ondansetron/PF 4mg/2ml inj IV PRN (16:42)
[2024-05-22 17:19] LABS: HEMATOCRIT 29.9 % (42.0-52.0); HEMOGLOBIN 9.2 g/dl (14.0-17.9); MEAN CORPUSCULAR HEMOGLOBIN 22.8 PG (27.0-31.0); MEAN CORPUSCULAR HGB CONC 30.8 g/dL (33.0-36.5); PLATELET COUNT 239 X10'3 (140-440); RED BLOOD COUNT 4.04 X10'6 (4.70-6.10); RED CELL DISTRIBUTION WIDTH 25.1 % (11.5-14.5)
[2024-05-22] MEDS: atenolol 50mg tablet PO ONE (23:59)
[2024-05-23] VITALS (8 sets, daily range): BP systolic 116–145; BP diastolic 65–78; PULSE 57–70; RESP 14–22; TEMP 97.2–98.6; O2SAT 95–98
[2024-05-23 03:58] LABS: INR 1.1 INR; PROTHROMBIN TIME 11.1 SECONDS (9.0-12.0)
[2024-05-23 04:02] LABS: ALANINE AMINOTRANSFERASE 38 U/L (12-78); ALBUMIN 3.5 G/DL (3.4-5.0); ALBUMIN/GLOBULIN RATIO 0.9 (1.1-1.5); ALKALINE PHOSPHATASE 89 IU/L (46-116); ANION GAP 15 (8-16); ASPARTATE AMINO TRANSFERASE 40 U/L (10-37); BLOOD UREA NITROGEN 15 MG/DL (7-18); BUN/CREATININE RATIO 16.7 (10.0-20.0); CHLORIDE 102 MMOL/L (99-107); GLUCOSE 102 MG/DL (70-104); MAGNESIUM 2.3 MG/DL (1.5-2.4); PHOSPHORUS 2.6 MG/DL (2.3-4.5); POTASSIUM 4.5 MMOL/L (3.5-5.1); SODIUM 139 MMOL/L (135-145); TOTAL CARBON DIOXIDE 21.8 MMOL/L (24-32); TOTAL PROTEIN 7.2 G/DL (6.4-8.2); eCRCL 73 ML/MIN; eGFR 88 ML/MIN
[2024-05-23] MEDS: haloperidol 5mg tablet PO PRN (05:22)
[2024-05-23 06:52] LABS: BASOPHILS # (AUTO) 0.1 X10'3 (0-0.2); BASOPHILS % (AUTO) 0.7 % (0-1); EOSINOPHILS % (AUTO) 0.1 % (0-6); HEMATOCRIT 29.5 % (42.0-52.0); HEMOGLOBIN 8.9 g/dl (14.0-17.9); LYMPHOCYTES # (AUTO) 0.8 X10'3 (1.1-4.8); LYMPHOCYTES % (AUTO) 10.4 % (21-51); MEAN CORPUSCULAR HEMOGLOBIN 22.4 PG (27.0-31.0); MEAN CORPUSCULAR HGB CONC 30.1 g/dL (33.0-36.5); MEAN CORPUSCULAR VOLUME 74.4 FL (78-98); MONOCYTES # (AUTO) 0.6 X10'3 (0-0.9); MONOCYTES % (AUTO) 7.4 % (2-12); NEUTROPHILS # (AUTO) 6.1 X10'3 (1.8-7.7); NEUTROPHILS % (AUTO) 81.4 % (42-75); PLATELET COUNT 238 X10'3 (140-440); RED BLOOD COUNT 3.96 X10'6 (4.70-6.10); RED CELL DISTRIBUTION WIDTH 24.8 % (11.5-14.5); WHITE BLOOD COUNT 7.5 X10'3 (4.5-11.0)
[2024-05-23 17:05] LABS: HEMOGLOBIN 9.2 g/dl (14.0-17.9); MEAN CORPUSCULAR HEMOGLOBIN 22.6 PG (27.0-31.0); MEAN CORPUSCULAR HGB CONC 30.8 g/dL (33.0-36.5); MEAN CORPUSCULAR VOLUME 73.2 FL (78-98); MEAN PLATELET VOLUME 6.3 FL (7.4-10.4); PLATELET COUNT 226 X10'3 (140-440); RED CELL DISTRIBUTION WIDTH 24.8 % (11.5-14.5); WHITE BLOOD COUNT 9.2 X10'3 (4.5-11.0)
[2024-05-24] VITALS (7 sets, daily range): BP systolic 106–120; BP diastolic 58–67; PULSE 60–75; RESP 15–18; TEMP 97.6–98.2; O2SAT 96–99
[2024-05-24] MEDS: haloperidol lactate 5mg/ml inj IM PRN (01:58)
[2024-05-24] MEDS: LORazepam 2 mg/ml vial IV PRN (04:19)
[2024-05-24 07:27] LABS: BASOPHILS # (AUTO) 0.1 X10'3 (0-0.2); BASOPHILS % (AUTO) 0.8 % (0-1); EOSINOPHILS # (AUTO) 0.1 X10'3 (0-0.9); EOSINOPHILS % (AUTO) 1.7 % (0-6); HEMOGLOBIN 9.5 g/dl (14.0-17.9); LYMPHOCYTES # (AUTO) 0.9 X10'3 (1.1-4.8); LYMPHOCYTES % (AUTO) 14.5 % (21-51); MEAN CORPUSCULAR HEMOGLOBIN 22.9 PG (27.0-31.0); MEAN CORPUSCULAR HGB CONC 31.6 g/dL (33.0-36.5); MEAN CORPUSCULAR VOLUME 72.5 FL (78-98); MEAN PLATELET VOLUME 8.2 FL (7.4-10.4); MONOCYTES # (AUTO) 0.4 X10'3 (0-0.9); MONOCYTES % (AUTO) 7.2 % (2-12); NEUTROPHILS # (AUTO) 4.7 X10'3 (1.8-7.7); NEUTROPHILS % (AUTO) 75.8 % (42-75); PLATELET COUNT 222 X10'3 (140-440); RED BLOOD COUNT 4.14 X10'6 (4.70-6.10); RED CELL DISTRIBUTION WIDTH 24.6 % (11.5-14.5); WHITE BLOOD COUNT 6.2 X10'3 (4.5-11.0)
[2024-05-24 07:29] LABS: PROTHROMBIN TIME 10.9 SECONDS (9.0-12.0)
[2024-05-24 07:42] LABS: ALANINE AMINOTRANSFERASE 23 U/L (12-78); ALBUMIN 2.9 G/DL (3.4-5.0); ALBUMIN/GLOBULIN RATIO 0.9 (1.1-1.5); ALKALINE PHOSPHATASE 74 IU/L (46-116); ANION GAP 8 (8-16); ASPARTATE AMINO TRANSFERASE 28 U/L (10-37); BILIRUBIN,TOTAL 0.4 MG/DL (0.1-1.0); BLOOD UREA NITROGEN 7 MG/DL (7-18); CALCIUM 7.9 MG/DL (8.5-10.1); CHLORIDE 103 MMOL/L (99-107); CREATININE 0.87 MG/DL (0.60-1.10); GLUCOSE 93 MG/DL (70-104); MAGNESIUM 1.7 MG/DL (1.5-2.4); SODIUM 136 MMOL/L (135-145); TOTAL CARBON DIOXIDE 24.8 MMOL/L (24-32); TOTAL PROTEIN 6.3 G/DL (6.4-8.2); eCRCL 76 ML/MIN; eGFR > 90 ML/MIN
[2024-05-24 08:03] LABS: POTASSIUM 3.6 MMOL/L (3.5-5.1)
[2024-05-24] MEDS: LORazepam 1 MG tablet PO PRN (08:04)
[2024-05-24 08:30] LABS: PHOSPHORUS 0.8 MG/DL (2.3-4.5)
[2024-05-24] MEDS: Neutra Phos packet PO SCH (09:33)
[2024-05-24] MEDS ORDERED: Neutra Phos packet PO SCH ×2 (13:00)
[2024-05-24] MEDS: morphine 2 MG/ML inj. syringe IV PRN (23:33)
[2024-05-25] VITALS (8 sets, daily range): BP systolic 105–141; BP diastolic 48–80; PULSE 64–92; RESP 15–19; TEMP 97.8–98.9; O2SAT 97–100
[2024-05-25 06:32] LABS: BASOPHILS % (AUTO) 0.6 % (0-1); EOSINOPHILS # (AUTO) 0.2 X10'3 (0-0.9); EOSINOPHILS % (AUTO) 3.6 % (0-6); HEMATOCRIT 29.3 % (42.0-52.0); HEMOGLOBIN 9.1 g/dl (14.0-17.9); LYMPHOCYTES % (AUTO) 22.8 % (21-51); MEAN CORPUSCULAR HEMOGLOBIN 22.8 PG (27.0-31.0); MEAN CORPUSCULAR HGB CONC 31.2 g/dL (33.0-36.5); MEAN PLATELET VOLUME 7.9 FL (7.4-10.4); MONOCYTES # (AUTO) 0.3 X10'3 (0-0.9); MONOCYTES % (AUTO) 6.5 % (2-12); NEUTROPHILS # (AUTO) 2.9 X10'3 (1.8-7.7); NEUTROPHILS % (AUTO) 66.5 % (42-75); PLATELET COUNT 200 X10'3 (140-440); RED BLOOD COUNT 4.01 X10'6 (4.70-6.10); RED CELL DISTRIBUTION WIDTH 24.6 % (11.5-14.5); WHITE BLOOD COUNT 4.4 X10'3 (4.5-11.0)
[2024-05-25 07:08] LABS: PROTHROMBIN TIME 10.7 SECONDS (9.0-12.0)
[2024-05-25 07:11] LABS: ALANINE AMINOTRANSFERASE 33 U/L (12-78); ALBUMIN 2.9 G/DL (3.4-5.0); ALBUMIN/GLOBULIN RATIO 0.9 (1.1-1.5); ALKALINE PHOSPHATASE 73 IU/L (46-116); ANION GAP 8 (8-16); ASPARTATE AMINO TRANSFERASE 46 U/L (10-37); BILIRUBIN,TOTAL 0.4 MG/DL (0.1-1.0); BLOOD UREA NITROGEN 6 MG/DL (7-18); BUN/CREATININE RATIO 7.3 (10.0-20.0); CALCIUM 7.9 MG/DL (8.5-10.1); CHLORIDE 105 MMOL/L (99-107); CREATININE 0.82 MG/DL (0.60-1.10); GLUCOSE 96 MG/DL (70-104); MAGNESIUM 1.5 MG/DL (1.5-2.4); PHOSPHORUS 1.8 MG/DL (2.3-4.5); POTASSIUM 3.4 MMOL/L (3.5-5.1); SODIUM 138 MMOL/L (135-145); TOTAL CARBON DIOXIDE 25.2 MMOL/L (24-32); TOTAL PROTEIN 6.2 G/DL (6.4-8.2); eCRCL 80 ML/MIN; eGFR > 90 ML/MIN
[2024-05-25] MEDS ORDERED: magnesium sulf-water 2g/50mL 50 ML IV PRN (08:50)
[2024-05-25] MEDS ORDERED: potassium CL 10mEq/100ml bag 100 ML IV PRN (08:50)
[2024-05-25] MEDS ORDERED: magnesium sulf-water 4G/100mL 100 ML IV PRN (08:50)
[2024-05-25] MEDS ORDERED: potassium Cl 40MEQ/1/2NS 520ml 520 ML IV PRN (08:50)
[2024-05-25] MEDS ORDERED: potassium Cl 20mEq/100mL bag 100 ML IV PRN (08:50)
[2024-05-25] MEDS ORDERED: potassium Cl 40MEQ/270ML bag 250 ML IV PRN (08:50)
[2024-05-25] MEDS: potassium Cl 20 mEq SR tablet PO PRN (09:35)
[2024-05-25] MEDS: POTASSIUM BICARB 20meq eff tab 20 MEQ TABLET.EFF PO PRN (14:10)
[2024-05-25] MEDS: folic acid 1mg tablet PO SCH (16:13)
[2024-05-25] MEDS: thiamine 100mg tablet PO SCH (16:13)
[2024-05-26] VITALS (9 sets, daily range): BP systolic 109–144; BP diastolic 55–76; PULSE 57–70; RESP 17–20; TEMP 97.5–99.7; O2SAT 95–100
[2024-05-26] MEDS ORDERED: LORazepam 2 mg/ml vial IV PRN (04:05)
[2024-05-26] MEDS: LORazepam 1 MG tablet PO PRN (04:11)
[2024-05-26 06:52] LABS: BASOPHILS % (AUTO) 0.8 % (0-1); EOSINOPHILS # (AUTO) 0.1 X10'3 (0-0.9); EOSINOPHILS % (AUTO) 3.9 % (0-6); HEMATOCRIT 25.8 % (42.0-52.0); HEMOGLOBIN 8.2 g/dl (14.0-17.9); LYMPHOCYTES # (AUTO) 0.8 X10'3 (1.1-4.8); LYMPHOCYTES % (AUTO) 27.1 % (21-51); MEAN CORPUSCULAR HEMOGLOBIN 23.3 PG (27.0-31.0); MEAN CORPUSCULAR HGB CONC 31.8 g/dL (33.0-36.5); MEAN CORPUSCULAR VOLUME 73.1 FL (78-98); MEAN PLATELET VOLUME 6.1 FL (7.4-10.4); MONOCYTES # (AUTO) 0.3 X10'3 (0-0.9); MONOCYTES % (AUTO) 10.6 % (2-12); NEUTROPHILS # (AUTO) 1.8 X10'3 (1.8-7.7); NEUTROPHILS % (AUTO) 57.6 % (42-75); PLATELET COUNT 224 X10'3 (140-440); RED BLOOD COUNT 3.53 X10'6 (4.70-6.10); RED CELL DISTRIBUTION WIDTH 24.7 % (11.5-14.5); WHITE BLOOD COUNT 3.1 X10'3 (4.5-11.0)
[2024-05-26 07:01] LABS: INR 1.1 INR; PROTHROMBIN TIME 11.2 SECONDS (9.0-12.0)
[2024-05-26 07:29] LABS: ALANINE AMINOTRANSFERASE 49 U/L (12-78); ALBUMIN 2.9 G/DL (3.4-5.0); ALBUMIN/GLOBULIN RATIO 0.9 (1.1-1.5); ALKALINE PHOSPHATASE 70 IU/L (46-116); ANION GAP 10 (8-16); ASPARTATE AMINO TRANSFERASE 60 U/L (10-37); BILIRUBIN,TOTAL 0.3 MG/DL (0.1-1.0); BLOOD UREA NITROGEN 5 MG/DL (7-18); CALCIUM 8.3 MG/DL (8.5-10.1); CHLORIDE 105 MMOL/L (99-107); CREATININE 0.71 MG/DL (0.60-1.10); GLUCOSE 92 MG/DL (70-104); MAGNESIUM 1.4 MG/DL (1.5-2.4); PHOSPHORUS 3.1 MG/DL (2.3-4.5); POTASSIUM 3.6 MMOL/L (3.5-5.1); SODIUM 138 MMOL/L (135-145); TOTAL CARBON DIOXIDE 22.9 MMOL/L (24-32); TOTAL PROTEIN 6.1 G/DL (6.4-8.2); eCRCL 93 ML/MIN; eGFR > 90 ML/MIN
[2024-05-26 07:41] LABS: ANISOCYTOSIS 3+; BURR CELLS FEW; HYPOCHROMASIA 1+; LARGE PLATELETS FEW; MICROCYTOSIS 1+; PLATELET ESTIMATE NORMAL
[2024-05-26] MEDS ORDERED: magnesium sulf-water 2g/50mL 50 ML IV PRN (08:35)
[2024-05-26] MEDS: magnesium Cl slow-release 64mg tablet PO PRN (08:40)
[2024-05-26] MEDS: K and/or MAG REPLACEMENT MC SCH (19:30)
[2024-05-27 02:00] VITALS: BP 137/62; PULSE 53; RESP 18; TEMP 98.3; O2SAT 97
[2024-05-27 06:00] VITALS: BP 133/60; PULSE 67; RESP 20; TEMP 98.3; O2SAT 99
[2024-05-27 07:32] LABS: BASOPHILS % (AUTO) 1.5 % (0-1); EOSINOPHILS # (AUTO) 0.1 X10'3 (0-0.9); EOSINOPHILS % (AUTO) 3.4 % (0-6); HEMOGLOBIN 8.5 g/dl (14.0-17.9); LYMPHOCYTES % (AUTO) 32.7 % (21-51); MEAN CORPUSCULAR HEMOGLOBIN 22.9 PG (27.0-31.0); MEAN CORPUSCULAR HGB CONC 30.4 g/dL (33.0-36.5); MEAN CORPUSCULAR VOLUME 75.4 FL (78-98); MONOCYTES # (AUTO) 0.5 X10'3 (0-0.9); MONOCYTES % (AUTO) 15.8 % (2-12); NEUTROPHILS # (AUTO) 1.4 X10'3 (1.8-7.7); NEUTROPHILS % (AUTO) 46.6 % (42-75); PLATELET COUNT 225 X10'3 (140-440); RED BLOOD COUNT 3.71 X10'6 (4.70-6.10); RED CELL DISTRIBUTION WIDTH 24.9 % (11.5-14.5)
[2024-05-27 07:32] LABS: INR 1.1 INR; PROTHROMBIN TIME 11.1 SECONDS (9.0-12.0)
[2024-05-27 08:00] VITALS: RESP 20; O2SAT 96
[2024-05-27 08:25] LABS: ALANINE AMINOTRANSFERASE 70 U/L (12-78); ALBUMIN/GLOBULIN RATIO 0.9 (1.1-1.5); ALKALINE PHOSPHATASE 69 IU/L (46-116); ANION GAP 12 (8-16); ASPARTATE AMINO TRANSFERASE 71 U/L (10-37); BILIRUBIN,TOTAL 0.4 MG/DL (0.1-1.0); BLOOD UREA NITROGEN 6 MG/DL (7-18); BUN/CREATININE RATIO 8.3 (10.0-20.0); CALCIUM 8.1 MG/DL (8.5-10.1); CHLORIDE 105 MMOL/L (99-107); CREATININE 0.72 MG/DL (0.60-1.10); GLUCOSE 86 MG/DL (70-104); PHOSPHORUS 3.5 MG/DL (2.3-4.5); POTASSIUM 3.6 MMOL/L (3.5-5.1); SODIUM 138 MMOL/L (135-145); TOTAL PROTEIN 6.3 G/DL (6.4-8.2); eCRCL 91 ML/MIN; eGFR > 90 ML/MIN
[2024-05-27 10:16] LABS: TOTAL CELLS COUNTED 100
[2024-05-27 10:17] LABS: ANISOCYTOSIS 3+; HYPOCHROMASIA 1+; LARGE PLATELETS FEW; MICROCYTOSIS 1+; PLATELET ESTIMATE NORMAL
[2024-05-27 11:00] VITALS: BP 139/71; PULSE 67; RESP 18; TEMP 97.1; O2SAT 100
[2024-05-27] MEDS ORDERED: FOLI1TAB27 PO (11:16)
[2024-05-27] MEDS ORDERED: PANT40SU2 PO (11:16)
[2024-05-29] MEDS ORDERED: LORazepam 1 MG tablet PO PRN (15:55)
== END 2024-05-27 12:30 | disposition home or self-care (01) | DRG 368 ==
LOC: ER 20:32 → ED HOLD 05-22 00:37 → PCU 3S 05-22 16:54
PROVIDERS: ADMIT Internal Medicine Pulmonary Disease; ATTEND Internal Medicine
PROC: 0D758ZZ Dilation of Esophagus, Via Natural or Artificial Opening Endoscopic (ICD-10-PCS; principal; 2024-05-22)
PROC: 0DB68ZZ Excision of Stomach, Via Natural or Artificial Opening Endoscopic (ICD-10-PCS; 2024-05-22)
PROC: 0DB38ZX Excision of Lower Esophagus, Via Natural or Artificial Opening Endoscopic, Diagnostic (ICD-10-PCS; 2024-05-22)
DX: K20.91 Esophagitis, unspecified with bleeding (principal); K29.71 Gastritis, unspecified, with bleeding; D62 Acute posthemorrhagic anemia; F10.239 Alcohol dependence with withdrawal, unspecified; I10 Essential (primary) hypertension; D63.8 Anemia in other chronic diseases classified elsewhere; Y90.9 Presence of alcohol in blood, level not specified; K22.2 Esophageal obstruction; K44.9 Diaphragmatic hernia without obstruction or gangrene; E83.39 Other disorders of phosphorus metabolism; Z79.899 Other long term (current) drug therapy; Z88.8 Allergy status to other drugs, medicaments and biological substances
CPT/HCPCS: 36415; 43239; 43249; 43251; 74176; 80053; 81001; 83690; 83735; 83880; 84100; 84132; 84484; 85007; 85008; 85025; 85027; 85610; 85730; 87081; 99152; 99285; A4620; A6258; A6449; A6590; C1726; C1889; G0378; J1630; J2060; J2250; J2270; J2354; J2405; J2470; J3010; J3411; J3490; J7030

== ENCOUNTER 2024-06-08 11:02 | Emergency (ER) | payer BC ==
[~2024-06-08] VITALS: Ht 157.5 cm; Wt 67.5 kg
[~2024-06-08 11:02] MED LIST changes: -CHLO25CA10 PO; +FOLI1TAB27 PO; -GABA-532 PO; -LORA-269 PO; -MIRT-87 PO; -PANT-47 PO; +PANT40SU2 PO; -QUET200T31 PO; -ROSU10TA72 PO; -THIA100T70 PO
[2024-06-08 11:08] VITALS: BP 140/86; PULSE 106; RESP 18; TEMP 97.9; O2SAT 96
[2024-06-08] MEDS ORDERED: GABA300C PO (12:06)
[2024-06-08 12:13] LABS: HEMOGLOBIN 9.7 g/dl (14.0-17.9); MEAN PLATELET VOLUME 5.7 FL (7.4-10.4); WHITE BLOOD COUNT 3.2 X10'3 (4.5-11.0)
[2024-06-08 12:15] LABS: HEMATOCRIT 31.3 % (42.0-52.0); MEAN CORPUSCULAR HEMOGLOBIN 22.2 PG (27.0-31.0); MEAN CORPUSCULAR VOLUME 71.8 FL (78-98); PLATELET COUNT 547 X10'3 (140-440); RED BLOOD COUNT 4.36 X10'6 (4.70-6.10); RED CELL DISTRIBUTION WIDTH 24.5 % (11.5-14.5)
[2024-06-08 12:32] LABS: ALANINE AMINOTRANSFERASE 40 U/L (12-78); ALBUMIN 3.7 G/DL (3.4-5.0); ALBUMIN/GLOBULIN RATIO 0.9 (1.1-1.5); ALKALINE PHOSPHATASE 76 IU/L (46-116); ANION GAP 13 (8-16); ASPARTATE AMINO TRANSFERASE 31 U/L (10-37); BILIRUBIN,TOTAL 0.4 MG/DL (0.1-1.0); BLOOD UREA NITROGEN 8 MG/DL (7-18); CALCIUM 8.4 MG/DL (8.5-10.1); CHLORIDE 103 MMOL/L (99-107); GLUCOSE 94 MG/DL (70-104); MAGNESIUM 1.8 MG/DL (1.5-2.4); POTASSIUM 3.8 MMOL/L (3.5-5.1); SODIUM 143 MMOL/L (135-145); TOTAL CARBON DIOXIDE 26.6 MMOL/L (24-32); TOTAL PROTEIN 7.7 G/DL (6.4-8.2); eCRCL 65 ML/MIN; eGFR 78 ML/MIN
[2024-06-08 12:59] LABS: ANISOCYTOSIS 3+; MICROCYTOSIS 1+; PLATELET ESTIMATE INCREASED; TOTAL CELLS COUNTED 100
[2024-06-08 13:00] LABS: POIKILOCYTOSIS 1+
[2024-06-08 13:03] LABS: ETHANOL 350 MG/DL (<10)
== END 2024-06-08 12:55 | disposition home or self-care (01) ==
LOC: ER 11:04
DX: F10.10 Alcohol abuse, uncomplicated (principal); I10 Essential (primary) hypertension; Z86.73 Personal history of transient ischemic attack (TIA), and cerebral infarction without residual deficits; Z88.8 Allergy status to other drugs, medicaments and biological substances; Z79.899 Other long term (current) drug therapy; Z98.890 Other specified postprocedural states; Y90.9 Presence of alcohol in blood, level not specified
CPT/HCPCS: 80053; 80320; 83735; 85007; 85025; 99283